=== PATIENT | male | born 1990 | race Caucasian/White ===

== ENCOUNTER 2019-04-25 17:55 | Inpatient (IN) | payer MEDICAID ==
[~2019-04-25] VITALS: Ht 182.9 cm; Wt 95.0 kg
[~2019-04-25 17:55] MED LIST: NO HOME MEDS
--- NOTE | 2019-04-25 18:29 | NUR ---
Note undone in EDM - 04/25/19 at 1832 by BABAK Pt. was cought walking out past the nursing station. stated he wanted to leave and would come right back. Pt. was informed he was not allowed to leave with the IV intact. BRAULIO Shin was notivied and came to room with the patient and explained that he could lose his finger or hand and that he was very sick and needed to stay in the hospital. The pt. was crying and refused to stay. AMA was signed and IV removed.
--- NOTE | 2019-04-25 18:34 | NUR ---
previous note was meant for another pt. marked undone
[2019-04-25] MEDS ORDERED: piperacillin/tazo 3.375gm/50ml 50 ML IV ONE (18:40)
[2019-04-25] MEDS ORDERED: vancomycin/NS 1 GM ADD-VANTAGE 250 ML IV ONE (18:40)
[2019-04-25] MEDS ORDERED: normal saline 1000ML IV soln IV ONE (18:40)
--- NOTE | 2019-04-25 19:00 | NUR ---
Patient reports using Heroin and Meth, states he is not interested in quitting at this time.
[2019-04-25] MEDS ORDERED: iohexol 300mg/ml 100ml inj. ONE (19:43)
[2019-04-25 19:46] LABS: BASOPHILS # (AUTO) 0.2 X10'3 (0-0.2); EOSINOPHILS # (AUTO) 0.1 X10'3 (0-0.9); EOSINOPHILS % (AUTO) 0.6 % (0-6); HEMATOCRIT 38.6 % (42.0-52.0); HEMOGLOBIN 13.3 g/dl (14.0-17.9); LYMPHOCYTES # (AUTO) 2.1 X10'3 (1.1-4.8); LYMPHOCYTES % (AUTO) 14.4 % (21-51); MEAN CORPUSCULAR HEMOGLOBIN 29.5 PG (27.0-31.0); MEAN CORPUSCULAR HGB CONC 34.6 g/dL (33.0-36.5); MEAN CORPUSCULAR VOLUME 85.4 FL (78-98); MEAN PLATELET VOLUME 8.2 FL (7.4-10.4); MONOCYTES # (AUTO) 1.4 X10'3 (0-0.9); MONOCYTES % (AUTO) 9.6 % (2-12); NEUTROPHILS % (AUTO) 74.4 % (42-75); PLATELET COUNT 301 X10'3 (140-440); RED BLOOD COUNT 4.52 X10'6 (4.70-6.10); RED CELL DISTRIBUTION WIDTH 13.3 % (11.5-14.5); WHITE BLOOD COUNT 14.8 X10'3 (4.5-11.0)
[2019-04-25 19:59] LABS: PARTIAL THROMBOPLASTIN TIME 29 SECONDS (22-32)
[2019-04-25] MEDS ORDERED: LIDOcaine 1% w/EPI 1:200,000 injection 10mL vial IM ONE (20:00)
[2019-04-25 20:01] LABS: ALANINE AMINOTRANSFERASE 66 U/L (12-78); ALBUMIN 2.8 G/DL (3.4-5.0); ALBUMIN/GLOBULIN RATIO 0.5 (1.1-1.5); ALKALINE PHOSPHATASE 73 IU/L (46-116); ANION GAP 5 (8-16); ASPARTATE AMINO TRANSFERASE 40 U/L (10-37); BILIRUBIN,TOTAL 0.7 MG/DL (0.1-1.0); BLOOD UREA NITROGEN 14 MG/DL (7-18); BUN/CREATININE RATIO 15.2 (5.4-32.0); C-REACTIVE PROTEIN 8.99 MG/DL (0.0-0.5); CALCIUM 8.5 MG/DL (8.5-10.1); CHLORIDE 98 MMOL/L (99-107); CREATININE 0.92 MG/DL (0.60-1.10); GLUCOSE 125 MG/DL (70-104); MAGNESIUM 1.6 MG/DL (1.5-2.4); POTASSIUM 4.2 MMOL/L (3.5-5.1); SODIUM 132 MMOL/L (135-145); TOTAL CARBON DIOXIDE 28.8 MMOL/L (24-32); TOTAL PROTEIN 8.3 G/DL (6.4-8.2); eGFR > 90 ML/MIN
[2019-04-25] MEDS ORDERED: LIDOcaine 1% W/epiNEPHrine 1:100,000 20ml vial SQ ONE (20:10)
[2019-04-25] MEDS ORDERED: LIDOcaine 1% W/epiNEPHrine 1:200,000 10ml vial IJ ONE (20:15)
[2019-04-25] MEDS ORDERED: acetaminophen 325mg tablet PO PRN ×2 (21:35)
[2019-04-25] MEDS ORDERED: magnesium hydroxide 30ml (MOM) UD suspension PO PRN (21:35)
[2019-04-25] MEDS ORDERED: potassium CL 10mEq/100ml bag 100 ML IV PRN ×2 (21:35)
[2019-04-25] MEDS ORDERED: magnesium Cl slow-release 64mg tablet PO PRN (21:35)
[2019-04-25] MEDS ORDERED: potassium Cl 20 mEq SR tablet PO PRN ×2 (21:35)
[2019-04-25] MEDS ORDERED: ondansetron/PF 4mg/2ml inj IV PRN (21:35)
[2019-04-25] MEDS ORDERED: magnesium 4gm in 100ml NS 100 ML IV PRN (21:35)
[2019-04-25] MEDS ORDERED: mag hydrox/Alum hydrox/simeth 30ml oral suspension PO PRN (21:35)
[2019-04-25] MEDS ORDERED: normal saline 1000ml 1,000 ML IV ONE (21:35)
[2019-04-25] MEDS ORDERED: HYDROcodone/acetaminophen 5mg/325mg tablet PO PRN (21:35)
[2019-04-25] MEDS ORDERED: magnesium 2GM in 50ml NS 50 ML IV PRN (21:35)
[2019-04-25] MEDS ORDERED: morphine 2 MG/ML inj. syringe IV PRN ×2 (21:35)
[2019-04-25 23:08] VITALS: BP 168/103
[2019-04-26] MEDS: piperacillin/tazo 3.375gm/50ml 50 ML IV SCH ×2 (02:08→09:00)
[2019-04-26] MEDS: VANCOmycin 1250MG/NS 250ml Bag 250 ML IV SCH ×2 (04:17→14:21)
[2019-04-26 06:00] VITALS: BP 125/66
[2019-04-26 06:14] LABS: BASOPHILS # (AUTO) 0.1 X10'3 (0-0.2); BASOPHILS % (AUTO) 0.7 % (0-1); EOSINOPHILS # (AUTO) 0.1 X10'3 (0-0.9); EOSINOPHILS % (AUTO) 0.7 % (0-6); HEMATOCRIT 35.8 % (42.0-52.0); HEMOGLOBIN 12.2 g/dl (14.0-17.9); LYMPHOCYTES # (AUTO) 1.9 X10'3 (1.1-4.8); LYMPHOCYTES % (AUTO) 12.8 % (21-51); MEAN CORPUSCULAR HEMOGLOBIN 29.2 PG (27.0-31.0); MEAN CORPUSCULAR HGB CONC 34.2 g/dL (33.0-36.5); MEAN CORPUSCULAR VOLUME 85.6 FL (78-98); MEAN PLATELET VOLUME 8.6 FL (7.4-10.4); MONOCYTES # (AUTO) 1.7 X10'3 (0-0.9); MONOCYTES % (AUTO) 11.3 % (2-12); NEUTROPHILS # (AUTO) 11.3 X10'3 (1.8-7.7); NEUTROPHILS % (AUTO) 74.5 % (42-75); PLATELET COUNT 274 X10'3 (140-440); RED BLOOD COUNT 4.18 X10'6 (4.70-6.10); RED CELL DISTRIBUTION WIDTH 13.2 % (11.5-14.5); WHITE BLOOD COUNT 15.1 X10'3 (4.5-11.0)
[2019-04-26 06:32] LABS: ALBUMIN 2.3 G/DL (3.4-5.0); ANION GAP 8 (8-16); BLOOD UREA NITROGEN 9 MG/DL (7-18); BUN/CREATININE RATIO 13.4 (5.4-32.0); CHLORIDE 99 MMOL/L (99-107); CREATININE 0.67 MG/DL (0.60-1.10); GLUCOSE 97 MG/DL (70-104); MAGNESIUM 1.4 MG/DL (1.5-2.4); SODIUM 134 MMOL/L (135-145); TOTAL CARBON DIOXIDE 26.6 MMOL/L (24-32); eGFR > 90 ML/MIN
[2019-04-26] MEDS ORDERED: lactobacillus rhamnosus 10,000 MMU CELLS/CAPSULE PO SCH (08:00)
[2019-04-26] MEDS ORDERED: enoxaparin 40mg/0.4ml syringe SQ SCH (08:00)
[2019-04-26] MEDS ORDERED: K and/or MAG REPLACEMENT MC SCH (08:00)
[2019-04-26 10:00] VITALS: BP 141/70
[2019-04-26 11:04] LABS: CLARITY,URINE CLEAR (Clear); COLOR,URINE STRAW (Yellow); GLUCOSE, URINE NEGATIVE (Neg); KETONES,URINE NEGATIVE (Neg); LEUKOCYTE ESTERASE ,URINE NEGATIVE (Neg); NITRITES, URINE NEGATIVE (Neg); OCCULT BLOOD,URINE NEGATIVE (Neg); PH,URINE 6.5 (4.8-8.0); PROTEIN,URINE NEGATIVE (Neg)
[2019-04-26 11:05] LABS: UA COLLECTION TYPE NON-SPECIFIED
[2019-04-26 11:12] LABS: URINE AMPHETAMINE SCREEN POSITIVE (Neg); URINE BARBITUATE SCREEN NEGATIVE (Neg); URINE BENZODIAZEPINES SCREEN NEGATIVE (Neg); URINE CANNABINOID SCREEN NEGATIVE (Neg); URINE COCAINE SCREEN NEGATIVE (Neg); URINE METHADONE SCREEN NEGATIVE (Neg); URINE OPIATE SCREEN POSITIVE (Neg); URINE PHENCYCLIDINE SCREEN NEGATIVE (Neg)
[2019-04-26 17:41] LABS: HIV ANTIBODY 1&2 RAPID NON-REACTIVE (Neg)
--- NOTE | 2019-04-26 18:04 | NUR ---
in to see patient. Another nurse notified me he was leaving. Stopped patient at the elevator to have him sign AMA paper, he stated "I know you guys are trying to help me" No IV in IJ nor Right arm.
[2019-04-27] MEDS ORDERED: VANCOMYCIN LEVEL IV ONE (03:30)
[2019-04-28 07:04] LABS: HBSAG SCREEN Negative (Negative); HEPATITIS C ANTIBODY >11.0 s/co ratio (0.0-0.9)
== END 2019-04-26 17:30 | disposition left against medical advice (07) | DRG 383 ==
LOC: ER 17:55 → ED HOLD 21:48 → ORTHO 4S 22:40
PROVIDERS: ADMIT Hospitalist; ATTEND Family Medicine
PROC: BP2U1ZZ Computerized Tomography (CT Scan) of Left Upper Extremity using Low Osmolar Contrast (ICD-10-PCS; principal; 2019-04-25)
DX: L03.114 Cellulitis of left upper limb (principal); F12.10 Cannabis abuse, uncomplicated; L02.414 Cutaneous abscess of left upper limb; F15.10 Other stimulant abuse, uncomplicated; F17.200 Nicotine dependence, unspecified, uncomplicated; Z53.29 Procedure and treatment not carried out because of patient's decision for other reasons; F19.10 Other psychoactive substance abuse, uncomplicated; Z59.0 Homelessness; Z71.6 Tobacco abuse counseling; Z71.51 Drug abuse counseling and surveillance of drug abuser; Z91.19 Patient's noncompliance with other medical treatment and regimen
CPT/HCPCS: 36415; 71045; 73201; 80048; 80053; 80305; 81003; 83605; 83735; 84145; 85025; 85610; 85651; 85730; 86140; 86703; 86706; 86803; 87040; 87081; 87340; 93005; 96365; 96366; 96367; 99285; G0378; J1650; J2543; J3370; Q9967

== ENCOUNTER 2019-04-28 22:42 | Inpatient (IN) | payer MEDICAID ==
[~2019-04-28] VITALS: Ht 182.9 cm; Wt 90.0 kg
[~2019-04-28 22:42] MED LIST changes: +piperacillin/tazo 4.5gm/100ml 100 ML IV ONE
[2019-04-28] MEDS ORDERED: normal saline 1000ml 1,000 ML IV ONE (23:30)
[2019-04-28] MEDS ORDERED: HYDR-3965 PO (23:36)
[2019-04-28] MEDS ORDERED: CEPH500C5 PO (23:36)
[2019-04-28] MEDS ORDERED: ONDA4TAB12 PO (23:36)
[2019-04-28] MEDS ORDERED: iohexol 300mg/ml 100ml inj. ONE (23:40)
[2019-04-28] MEDS ORDERED: vancomycin/NS 1 GM ADD-VANTAGE 250 ML X 1 DOSE IV ONE (23:50)
--- NOTE | 2019-04-29 | NUR ---
Dr. Callahanfs able to establish IV access using ultrasound.
[2019-04-29] MEDS ORDERED: morphine 4 MG/ML inj SYRINge IV ONE (00:30)
[2019-04-29] MEDS ORDERED: ondansetron/PF 4mg/2ml inj IV ONE (00:30)
[2019-04-29 00:36] LABS: BASOPHILS # (AUTO) 0.1 X10'3 (0-0.2); BASOPHILS % (AUTO) 0.6 % (0-1); EOSINOPHILS # (AUTO) 0.1 X10'3 (0-0.9); EOSINOPHILS % (AUTO) 1.1 % (0-6); HEMATOCRIT 37.9 % (42.0-52.0); HEMOGLOBIN 12.9 g/dl (14.0-17.9); LYMPHOCYTES # (AUTO) 2.4 X10'3 (1.1-4.8); LYMPHOCYTES % (AUTO) 20.1 % (21-51); MEAN CORPUSCULAR HEMOGLOBIN 29.1 PG (27.0-31.0); MEAN CORPUSCULAR VOLUME 85.5 FL (78-98); MEAN PLATELET VOLUME 8.2 FL (7.4-10.4); MONOCYTES # (AUTO) 1.5 X10'3 (0-0.9); MONOCYTES % (AUTO) 12.5 % (2-12); NEUTROPHILS # (AUTO) 7.8 X10'3 (1.8-7.7); NEUTROPHILS % (AUTO) 65.7 % (42-75); PLATELET COUNT 348 X10'3 (140-440); RED BLOOD COUNT 4.44 X10'6 (4.70-6.10); RED CELL DISTRIBUTION WIDTH 13.3 % (11.5-14.5); WHITE BLOOD COUNT 11.9 X10'3 (4.5-11.0)
[2019-04-29 00:49] LABS: PARTIAL THROMBOPLASTIN TIME 24 SECONDS (22-32)
[2019-04-29 00:57] LABS: ALANINE AMINOTRANSFERASE 55 U/L (12-78); ALBUMIN 2.4 G/DL (3.4-5.0); ALBUMIN/GLOBULIN RATIO 0.5 (1.1-1.5); ALKALINE PHOSPHATASE 69 IU/L (46-116); ANION GAP 8 (8-16); ASPARTATE AMINO TRANSFERASE 33 U/L (10-37); BILIRUBIN,TOTAL 0.3 MG/DL (0.1-1.0); BLOOD UREA NITROGEN 9 MG/DL (7-18); CALCIUM 8.6 MG/DL (8.5-10.1); CHLORIDE 99 MMOL/L (99-107); CREATINE KINASE 54 U/L (39-308); CREATININE 0.75 MG/DL (0.60-1.10); GLUCOSE 101 MG/DL (70-104); POTASSIUM 3.6 MMOL/L (3.5-5.1); SODIUM 135 MMOL/L (135-145); TOTAL PROTEIN 7.7 G/DL (6.4-8.2); eGFR > 90 ML/MIN
[2019-04-29 01:32] LABS: CLARITY,URINE CLEAR (Clear); COLOR,URINE YELLOW (Yellow); GLUCOSE, URINE NEGATIVE (Neg); KETONES,URINE NEGATIVE (Neg); LEUKOCYTE ESTERASE ,URINE NEGATIVE (Neg); NITRITES, URINE NEGATIVE (Neg); OCCULT BLOOD,URINE NEGATIVE (Neg); PH,URINE 5.5 (4.8-8.0); PROTEIN,URINE NEGATIVE (Neg); UROBILINOGEN,URINE 0.2 E.U/dL (0.2-1.0)
[2019-04-29 01:33] LABS: UA COLLECTION TYPE CLN CATCH MIDSTREAM
[2019-04-29] MEDS ORDERED: HYDROcodone/acetaminophen 5mg/325mg tablet PO PRN (02:05)
[2019-04-29] MEDS ORDERED: mag hydrox/Alum hydrox/simeth 30ml oral suspension PO PRN (02:05)
[2019-04-29] MEDS ORDERED: magnesium Cl slow-release 64mg tablet PO PRN (02:05)
[2019-04-29] MEDS ORDERED: magnesium 4gm in 100ml NS 100 ML IV PRN (02:05)
[2019-04-29] MEDS ORDERED: magnesium hydroxide 30ml (MOM) UD suspension PO PRN (02:05)
[2019-04-29] MEDS ORDERED: magnesium 2GM in 50ml NS 50 ML IV PRN (02:05)
[2019-04-29] MEDS ORDERED: ondansetron/PF 4mg/2ml inj IV PRN (02:05)
[2019-04-29] MEDS ORDERED: morphine 2 MG/ML inj. syringe IV PRN (02:05)
[2019-04-29] MEDS ORDERED: normal saline 1000ml 1,000 ML IV ONE (02:05)
[2019-04-29] MEDS ORDERED: acetaminophen 325mg tablet PO PRN (02:05)
[2019-04-29] MEDS ORDERED: potassium CL 10mEq/100ml bag 100 ML IV PRN ×2 (02:05)
[2019-04-29] MEDS ORDERED: potassium Cl 20 mEq SR tablet PO PRN ×2 (02:05)
--- NOTE | 2019-04-29 03:11 | NUR ---
Pt resting comfortably, respirations even and non labored. No complaints. Awaiting inpatient assignment, will continue to monitor.
[2019-04-29 04:00] VITALS: BP 128/71
--- NOTE | 2019-04-29 06:52 | NUR ---
Patient in room [facility]TH[facility] 4021. I have received report from Aakash GARCIA and had the opportunity to ask questions and assume patient care.
[2019-04-29] MEDS: K and/or MAG REPLACEMENT MC SCH (08:00)
[2019-04-29] MEDS ORDERED: vancomycin 1,000mg inj IV SCH (08:00)
[2019-04-29] MEDS ORDERED: piperacillin/tazo 3.375gm/50ml 50 ML IV SCH (08:00)
[2019-04-29] MEDS: VANCOmycin 1250MG/NS 250ml Bag 250 ML IV SCH ×2 (09:23→16:42)
[2019-04-29] MEDS: enoxaparin 40mg/0.4ml syringe SQ SCH (09:23)
[2019-04-29 10:00] VITALS: BP 135/91
--- NOTE | 2019-04-29 10:08 | NUR ---
PAged hospitalist [phone] that there's no diet order for patient can one be put in please, called back and he will be put on a regular diet
--- NOTE | 2019-04-29 11:21 | NUR ---
PATIENT ADVISED TO SIT UP IN CHAIR WHILE AWAKE, NOW PATIENT STATES HE IS TIRED AND WANTS TO SLEEP IN THE BED, WILL CONTINUE TO MONITOR
[2019-04-29] MEDS ORDERED: acetaminophen 325mg tablet PEG PRN (14:57)
[2019-04-29] MEDS ORDERED: mag hydrox/Alum hydrox/simeth 30ml oral suspension PEG PRN (14:58)
[2019-04-29] MEDS ORDERED: magnesium hydroxide 30ml (MOM) UD suspension PEG PRN (14:59)
[2019-04-29] MEDS ORDERED: POTASSIUM BICARB 20meq eff tab 20 MEQ TABLET.EFF PEG PRN ×2 (15:00→15:01)
[2019-04-29] MEDS ORDERED: HYDROcodone/acetaminophen 7.5MG/325MG per 15ml UD CUP PEG PRN (15:04)
[2019-04-29] MEDS ORDERED: HYDROcodone/acetaminophen 7.5MG/325MG per 15ml UD CUP PO PRN (15:04)
[2019-04-29 18:00] VITALS: BP 140/90
--- NOTE | 2019-04-29 18:08 | NUR ---
Problems reprioritized. Patient report given, questions answered & plan of care reviewed with Aakash GARCIA.
[2019-04-29] MEDS: piperacillin/tazo 3.375gm/50ml 50 ML IV SCH (19:33)
[2019-04-29] MEDS: lactobacillus rhamnosus 10,000 MMU CELLS/CAPSULE PO SCH (19:33)
[2019-04-29] MEDS: morphine 2 MG/ML inj. syringe IV PRN (19:34)
[2019-04-29 22:00] VITALS: BP 134/76
[2019-04-30] VITALS (16 sets, daily range): BP systolic 105–163; BP diastolic 55–110
[2019-04-30] MEDS: VANCOmycin 1250MG/NS 250ml Bag 250 ML IV SCH ×2 (00:35→07:57)
[2019-04-30] MEDS: piperacillin/tazo 3.375gm/50ml 50 ML IV SCH ×3 (02:48→17:05)
--- NOTE | 2019-04-30 06:27 | NUR ---
Problems reprioritized. Patient report given, questions answered & plan of care reviewed with Kaela GARCIA.
[2019-04-30] MEDS ORDERED: VANCOMYCIN LEVEL IV NR (07:30)
[2019-04-30] MEDS: K and/or MAG REPLACEMENT MC SCH (07:44)
[2019-04-30] MEDS: enoxaparin 40mg/0.4ml syringe SQ SCH (07:44)
[2019-04-30] MEDS: lactobacillus rhamnosus 10,000 MMU CELLS/CAPSULE PO SCH (07:44)
[2019-04-30] MEDS: morphine 2 MG/ML inj. syringe IV PRN ×2 (07:58→17:05)
[2019-04-30 08:00] LABS: BASOPHILS % (AUTO) 0.1 % (0-1); EOSINOPHILS # (AUTO) 0.1 X10'3 (0-0.9); HEMATOCRIT 38.6 % (42.0-52.0); HEMOGLOBIN 13.5 g/dl (14.0-17.9); LYMPHOCYTES # (AUTO) 2.2 X10'3 (1.1-4.8); LYMPHOCYTES % (AUTO) 18.5 % (21-51); MEAN CORPUSCULAR HEMOGLOBIN 29.7 PG (27.0-31.0); MEAN CORPUSCULAR VOLUME 85.1 FL (78-98); MONOCYTES # (AUTO) 1.3 X10'3 (0-0.9); MONOCYTES % (AUTO) 10.8 % (2-12); NEUTROPHILS # (AUTO) 8.2 X10'3 (1.8-7.7); NEUTROPHILS % (AUTO) 69.6 % (42-75); PLATELET COUNT 341 X10'3 (140-440); RED BLOOD COUNT 4.53 X10'6 (4.70-6.10); RED CELL DISTRIBUTION WIDTH 12.9 % (11.5-14.5); WHITE BLOOD COUNT 11.7 X10'3 (4.5-11.0)
[2019-04-30 08:10] LABS: ALBUMIN 2.4 G/DL (3.4-5.0); ANION GAP 6 (8-16); BLOOD UREA NITROGEN 7 MG/DL (7-18); BUN/CREATININE RATIO 11.5 (5.4-32.0); CALCIUM 9.2 MG/DL (8.5-10.1); CHLORIDE 101 MMOL/L (99-107); CREATININE 0.61 MG/DL (0.60-1.10); GLUCOSE 90 MG/DL (70-104); MAGNESIUM 1.8 MG/DL (1.5-2.4); SODIUM 136 MMOL/L (135-145); TOTAL CARBON DIOXIDE 28.8 MMOL/L (24-32); VANCOMYCIN,TROUGH 3.8 UG/ML (6.0-14.0); eGFR > 90 ML/MIN
[2019-04-30] MEDS ORDERED: ringers solution, lacted 1,000 ML IV SCH (09:34)
[2019-04-30] MEDS ORDERED: ondansetron/PF 4mg/2ml inj IV PRN (09:35)
[2019-04-30] MEDS ORDERED: meperidine/PF 25mg/ml syringe IV PRN ×2 (09:35)
[2019-04-30] MEDS ORDERED: proCHLORperazine 10 MG/2 ml inj IV PRN (09:35)
[2019-04-30] MEDS ORDERED: morphine 4 MG/ML inj SYRINge IV PRN ×2 (09:35)
[2019-04-30] MEDS ORDERED: sevoflurane 250ml liquid IH ONE (11:10)
[2019-04-30] MEDS ORDERED: midazolam 2 mg/2 ml injection ONE (11:38)
[2019-04-30] MEDS ORDERED: fentaNYL/PF 50MCG/1 ML 2ML syringe ONE ×2 (11:40→12:06)
[2019-04-30] MEDS ORDERED: LIDOcaine 1%/PF 5ML 10 MG/ML VIAL ONE (12:25)
[2019-04-30] MEDS ORDERED: propofol inj 20 ML IV ONE ×2 (12:25)
[2019-04-30] MEDS ORDERED: LIDOcaine 2% (20mg/ml) 5ml vial ONE (12:25)
--- NOTE | 2019-04-30 12:40 | NUR ---
Received from OR via BED, accompanied by Anesthesiologist DR LAYTON-- and report given by Anesthesiolgist. PATIENT A&OX4, DENIES PAIN, V/S WNL, NEUROVASCULAR CHECKS INTACT,CL TRIPLE LUMEN RIGHT NECK SCD ON, DRESSING TO LUE CDI
[2019-04-30] MEDS: meperidine/PF 25mg/ml syringe IV PRN ×3 (12:45→13:52)
[2019-04-30] MEDS ORDERED: ketorolac trometh. 30mg/ml inj. IV ONE (12:45)
[2019-04-30] MEDS ORDERED: VANCOmycin 1250MG/NS 250ml Bag 250 ML IV SCH (14:00)
--- NOTE | 2019-04-30 14:06 | NUR ---
awaiting sitter for patient to arrive to ortho floor prior to transfer
--- NOTE | 2019-04-30 14:20 | NUR ---
PATIENT A&OX4, DENIES PAIN, V/S WNL, NEUROVASCULAR CHECKS INTACT,CL TRIPLE LUMEN RIGHT NECK SCD ON, DRESSING TO LUE CDI. PATIENT TAKEN TO WITH ALL BELONGINGS AND HOOKED UP TO MONITORS IN ROOM AND REPORT GIVEN TO RN WHO HAS TAKEN OVER PATIENT CARE. SITTER IN ROOM WITH PATIENT
[2019-04-30] MEDS ORDERED: folic acid 1mg tablet PO SCH (14:25)
[2019-04-30] MEDS ORDERED: thiamine 100mg tablet PO SCH (14:25)
[2019-04-30] MEDS ORDERED: LORazepam 2 mg/ml vial IV PRN (14:25)
[2019-04-30] MEDS ORDERED: LORazepam 1 MG tablet PO PRN ×2 (14:25→14:55)
[2019-04-30] MEDS ORDERED: nicotine 21mg patch - 24 hr TD SCH (14:55)
--- NOTE | 2019-04-30 18:20 | NUR ---
Received report from RADHA Sherwood. Assumed care of patient.
--- NOTE | 2019-04-30 19:15 | NUR ---
Patient stated he was ready to leave. I informed him he would be leaving against medical advice, pt stated, "I understand but I need to get out of here." I informed him I would need to remove his central line, pt agreed. I educated pt to return to ED if symptoms worsen. Pt had all of his belongings. After central line was removed, pt was escorted out by security.
--- NOTE | 2019-04-30 19:20 | NUR ---
Patient requesting to leave AMA. Patient verbalized that he knew he would be leaving against medical advise but stated he was ready to leave. MD Hansen notified that patient is requesting to leave at this time. Primary care nurse is removing central line at this time. Security is at bedside to walk patient out.
[2019-05-01] MEDS ORDERED: VANCOMYCIN LEVEL IV ONE (07:30)
== END 2019-04-30 19:30 | disposition left against medical advice (07) | DRG 364 ==
LOC: ER 22:43 → ED HOLD 04-29 02:53 → ORTHO 4S 04-29 03:51
PROVIDERS: ADMIT Hospitalist; ATTEND Hospitalist
PROC: BP2U1ZZ Computerized Tomography (CT Scan) of Left Upper Extremity using Low Osmolar Contrast (ICD-10-PCS; 2019-04-29)
PROC: 0K960ZZ Drainage of Left Shoulder Muscle, Open Approach (ICD-10-PCS; principal; 2019-04-30 11:10)
DX: L03.114 Cellulitis of left upper limb (principal); M60.009 Infective myositis, unspecified site; F17.200 Nicotine dependence, unspecified, uncomplicated; F11.10 Opioid abuse, uncomplicated; Z53.29 Procedure and treatment not carried out because of patient's decision for other reasons; L02.414 Cutaneous abscess of left upper limb; F12.90 Cannabis use, unspecified, uncomplicated; Z91.19 Patient's noncompliance with other medical treatment and regimen; Z56.0 Unemployment, unspecified; Z79.899 Other long term (current) drug therapy
CPT/HCPCS: 36415; 71045; 73201; 80048; 80053; 80202; 81003; 82550; 83605; 83735; 84145; 85025; 85610; 85730; 87040; 87070; 87075; 87077; 87081; 87186; A4618; A6222; A6446; A6449; A7000; G0378; J1650; J1885; J2001; J2175; J2250; J2270; J2405; J2543; J2704; J3010; J3370; J7120; Q9967

== ENCOUNTER 2020-04-25 13:17 | Emergency (ER) | payer MEDICAID ==
[~2020-04-25] VITALS: Ht 182.9 cm; Wt 113.6 kg
[~2020-04-25 13:17] MED LIST changes: -piperacillin/tazo 4.5gm/100ml 100 ML IV ONE
[2020-04-25 13:21] VITALS: BP 128/76
[2020-04-25] MEDS ORDERED: DOXY100C76 PO (17:21)
[2020-04-25] MEDS ORDERED: CEPH-572 PO (17:21)
== END 2020-04-25 17:33 | disposition left against medical advice (07) ==
LOC: ER 13:17
DX: L03.114 Cellulitis of left upper limb (principal); M79.622 Pain in left upper arm; M79.89 Other specified soft tissue disorders; I50.89 Other heart failure; F15.10 Other stimulant abuse, uncomplicated; F12.90 Cannabis use, unspecified, uncomplicated; F11.90 Opioid use, unspecified, uncomplicated; Z72.89 Other problems related to lifestyle; Z56.0 Unemployment, unspecified; Z79.2 Long term (current) use of antibiotics
CPT/HCPCS: 99283